=== PATIENT | male | born 1985 | race Caucasian/White ===

== ENCOUNTER 2017-08-20 11:43 | Emergency (ER) | payer OTHER ==
[2017-08-20] MEDS: IBUPROFEN 800 MG TAB PO (12:21)
[2017-08-20] MEDS: CYCLOBENZAPRINE 10 MG TAB PO (12:22)
== END 2017-08-20 13:16 | disposition home or self-care (01) ==
LOC: M ED 11:43
DX: M25.512 Pain in left shoulder (principal); M54.2 Cervicalgia
CPT/HCPCS: 72052

== ENCOUNTER → 2020-06-06 | Outpatient (CLI) | payer OTHER ==
[~2020-06-06] MED LIST: CYCL-707 PO; IBUP80TA PO
--- NOTE | 2020-06-09 14:41 | SLEEPCENT ---
NOCTURNAL POLYSOMNOGRAPHY DATE: 06/06/2020 ORDERED BY: Dr. Burgos, [facility]. Nocturnal polysomnography was performed for evaluation of sleep physiology. 8 hours and 39 minutes of data were reviewed. There were 364 minutes of sleep identified. Sleep latency was prolonged at 33 minutes. REM latency was mildly prolonged at 127 minutes. Sleep architecture showed some fragmentation. There were three REM cycles noted. Overall sleep efficiency was 71.4%. The electrocardiogram showed a sinus rhythm with an average heart rate of 78 beats per minute; rate range 46 to 98. EEG showed reasonably normal waveforms for wake and sleep. There were 176 respiratory events identified of 10 seconds in duration or greater for an apnea-hypopnea index of 29. The events were primarily obstructive, not exclusive to sleep stage, and more frequent, but not exclusive to the supine posture. Arousals from respiratory events occurred 16.8 times per hour and oxygen desaturations were seen below 90%. There was some minor limb activity. Limb movement arousal index was 4.9. IMPRESSION: Obstructive sleep apnea syndrome (G47.33), apnea-hypopnea index 29. RECOMMENDATION: The patient should be encouraged to return [facility] for [facility]. In the interim, alcohol and sedative avoidance should be practiced and caution exercised during the operation of motor vehicles.
== END ==
LOC: M SLEEP 20:00
PROVIDERS: ATTEND Family Medicine
DX: G47.33 Obstructive sleep apnea (adult) (pediatric) (principal)

== ENCOUNTER → 2020-06-13 | Outpatient (CLI) | payer OTHER ==
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
== END ==
LOC: M PAIN 10:00
PROVIDERS: ATTEND Family Medicine
DX: M54.2 Cervicalgia (principal); E78.5 Hyperlipidemia, unspecified; E66.9 Obesity, unspecified; M54.5 Low back pain; L23.9 Allergic contact dermatitis, unspecified cause; Z87.891 Personal history of nicotine dependence; Z68.39 Body mass index [BMI] 39.0-39.9, adult; Z79.899 Other long term (current) drug therapy

== ENCOUNTER → 2020-07-22 | Outpatient (CLI) | payer OTHER ==
--- NOTE | 2020-07-25 01:07 | ECWPNPC ---
PATIENT NAME: AMADOR CASTILLO : 1985 GENDER: MALE VISIT DATE: 07/22/2020 DISCHARGE DATE: 07/22/20 1504 VISIT LOCKED DATE TIME: PHYSICIAN: BILL GRACE RESOURCE: BILL GRACE REASON FOR APPOINTMENT 1. CERVICALGIA HISTORY OF PRESENT ILLNESS GENERAL: HPI . 35-YEAR-OLD MALE IN FOR CHRONIC PAIN FOLLOW-UP. HE RATES HIS PAIN CURRENTLY AT A 6 OUT OF 10 AND DESCRIBES IT BURNING, AND CONTINUOUS. PATIENT WAS STARTED ON GABAPENTIN AT LAST CLINIC VISIT AND HE ADMITS TODAY THAT THIS HAS BEEN BENEFICIAL BUT ALSO STATES THAT IT SEEMS TO WEAR OFF FAST.. -. FALL RISK SCREENING: SCREENING : NO FALLS REPORTED IN THE LAST YEAR. PAIN SCREENING: PATIENT HAS A COMPLAINT OF ACUTE OR CHRONIC PAIN :YES LOCATION OF PAIN:NECK INTENSITY OF PAIN (SCALE OF 1 TO 10):6 WHAT DOES YOUR PAIN FEEL LIKE:BURNING, CONTINOUS, OTHER STIFFNESS DURATION:CONTINOUS PAIN IS INCREASED BY:ACTIVITIES, OTHERS SITTING AND LAYING DOWN, LIFTING PAIN IS DECREASED BY:USE OF PAIN MEDICATIONS NURSING NOTE: -. PAIN CENTER INTAKE QUESTIONS: DO YOU HAVE A HISTORY OF MRSA? :NO DO YOU TAKE A BLOOD THINNERS? :NO DO YOU HAVE ANY BLEEDING DISORDERS? :NO ANY NEW NUMBNESS OR WEAKNESS IN YOUR LEGS OR ARMS? :NO ANY PACEMAKER,DEFIBRILLATOR, OR DORSAL COLUMN STIMULATOR? :NO DO YOU HAVE ANY RASHES OR OPEN SORES? :NO ARE YOU ALLERGIC TO IV DYE? :NO ARE YOU DIABETIC? :NO ANY NEW PROBLEMS WITH YOUR MEDICATIONS? :NO HAVE YOU RECEIVED A VACCINE IN THE PAST 30 DAYS? :NO DO YOU PLAN TO RECEIVE A VACCINE IN THE NEXT 21 DAYS? :NO DO YOU NEED ANY PRESCRIPTION? :YES GABAPENTIN DO YOU TAKE ANY IMMUNOSUPPRESSIVE MEDICATIONS? :NO DO YOU HAVE ANY KIDNEY OR LIVER DISEASE? :NO IS THERE A CHANCE YOU COULD BE ? :NO ARE YOU BREAST FEEDING? :NO CURRENT MEDICATIONS UNKNOWN GABAPENTIN 100 MG CAPSULE 1 CAPSULE ORALLY THREE TIMES DAILY UNKNOWN GABAPENTIN 300 MG CAPSULE 1 CAPSULE ORALLY THREE TIMES DAILY START DAY 6 UNKNOWN ERGOCALCIFEROL 1.25 MG (82766 UT) CAPSULE 1 CAPSULE ORALLY WEEKLY UNKNOWN MAY USE _ VITAMIN D2, 55643 UNITS ORALLY WEEKLY, NOTES: FOR VITAMIN REPLACEMENT MEDICATION LIST REVIEWED AND RECONCILED WITH THE PATIENT PAST MEDICAL HISTORY HYPERLIPIDEMIA OBESITY ECZEMA, ALLERGIC ELEVATED BLOOD PRESSURE READING WITHOUT DIAGNOSIS OF HIGH BLOOD PRESSURE LOW BACK PAIN NECK PAIN ALLERGIES N.K.D.A. SOCIAL HISTORY GENERAL: TOBACCO USE ARE YOU A:FORMER SMOKER LATEX QUESTIONNAIRE LATEX ALLERGY : HAVE YOU EVER DEVELOPED ANY TYPE OF REACTION AFTER HANDLING LATEX PRODUCTS SUCH RUBBER GLOVES, CONDOMS, DIAPHRAGMS, BALLOONS, SOCKS, OR UNDERWEAR?NO LATEX ALLERGY : HAVE YOU EVER DEVELOPED ANY TYPE OF REACTION DURING OR AFTER DENTAL APPOINTMENT, VAGINAL/RECTAL EXAMINATION, SURGICAL PROCEDURE, OR ANY OTHER EXPOSURE?NO LATEX RISK : HAVE YOU EVER HAD ANY DIFFICULTY BREATHING OR HIVES AFTER EATING OR HANDLING ANY FRUITS, OR VEGETABLES; SUCH KIWI, BANANAS, STONE FRUITS, OR CHESTNUTSNO LATEX RISK : DO YOU HAVE A PREVIOUS PERSONAL HISTORY OF MORE THAN NINE SURGERIES, SPINA BIFIDA, OR REPEATED CATHERIZATIONS? NO LATEX RISK : ARE YOU FREQUENTLY EXPOSED TO LATEX PRODUCTS IN YOUR OCCUPATION?NO DATE ASKED : 07/22/2020 ALCOHOL USE: NO. RECREATIONAL DRUG USE DRUG USE?NO CAFFEINE CAFFEINE USE?YES HOW OFTEN AND HOW MUCH? 5/DAY LANGUAGE LANGUAGES SPOKEN:TANZ[place]IAN EDUCATION LEVEL OF EDUCATION:NOT FINISHED HIGH SCHOOL LEARNING BARRIERS / SPECIAL NEEDS CHANGE FROM LAST VISIT?NO BARRIERS TO LEARNING?NO HEARING IMPAIRED?NO TINNITUS VISION IMPAIRED?NO COGNITIVELY IMPAIRED?NO READINESS TO LEARN?YES LEARNING PREFERENCES?NO LEARNING CAPABILITIES PRESENT?YES EMOTIONAL BARRIERS?NO SPECIAL DEVICES?NO FACILITY MAINTENANCE SUPERVISOR NEEDED?NO REVIEW OF SYSTEMS CONSTITUTIONAL: ANY RECENT FEVER NO . CHILLS NO . WEIGHT CHANGE OF UNKNOWN REASONS NO . GASTROENTEROLOGY: NEW UNEXPLAINABLE CHANGES IN BOWEL CONTROL NO . CONSTIPATION NO . GENITOURINARY: ANY NEW CHANGE IN BLADDER CONTROL? NO . NEUROLOGY: NEW ONSET DIZZINESS OR NEUROLOGICAL CHANGES NOT MENTIONED NO . NEW NUMBNESS OR PAIN PATTERNS NOT MENTIONED AND PERTINENT TO TODAY'S VISIT NO . CARDIOLOGY: NEW CHEST PRESSURE NO . PATIENT DENIES NO . RESPIRATORY: UNEXPLAINABLE COUGH NO . NEW SHORTNESS OF BREATH NO . VITAL SIGNS WT 307.4 LBS, HT 73 IN, BMI 40.55 INDEX, BP 145/90 MM HG, HR 106 /MIN, RR 18 /MIN, TEMP 97.1 F, OXYGEN SAT % 92%, SAFE IN ENV? (Y/N) YES, REVIEWED BY: VINNY LANDAVERDE MA. EXAMINATION GENERAL EXAMINATION: GENERALNO ACUTE DISTRESS, WELL NOURISHED AND HYDRATED. PSYCHAPPROPRIATE MOOD AND AFFECT . LUNGS:CLEAR TO AUSCULTATION BILATERALLY, NO WHEEZES, RHONCHI, RALES. HEART:NO MURMURS, REGULAR RATE AND RHYTHM. ASSESSMENTS CERVICALGIA - M54.2 (PRIMARY) TREATMENT CERVICALGIA STOP GABAPENTIN CAPSULE, 100 MG, 1 CAPSULE, ORALLY, THREE TIMES DAILY INCREASE GABAPENTIN TABLET, 600 MG, 1 CAPSULE, ORALLY, THREE TIMES DAILY, 30 DAY(S), 90, REFILLS 2 NOTES: 35-YEAR-OLD MALE IN FOR CHRONIC PAIN FOLLOW-UP. GIVEN PRESENTING SYMPTOMS RECOMMEND INCREASING GABAPENTIN TO 600 MG 3 TIMES A DAY WITH FOLLOW-UP IN 2 MONTHS. PATIENT HAS EXPRESSED UNDERSTANDING OF AND WAS IN AGREEMENT WITH TREATMENT PLAN. GIVEN TIME TO ASK QUESTIONS AND EXPRESS CONCERNS. DISPOSITION & COMMUNICATION FOLLOW UP 2 MONTHS (REASON: MEDICATION INCREASE ) ELECTRONICALLY SIGNED BY DARYL WEEMS ON 07/24/2020 AT 08:50 AM EDT DISCLAIMER : THIS IS A VISIT SUMMARY EXTRACTED FROM THE [employer] CHART. IT IS NOT A COPY OF THE [employer] PROGRESS NOTE. GLENYS
== END ==
LOC: M PAIN 14:45
PROVIDERS: ATTEND Family Medicine
DX: M54.2 Cervicalgia (principal); G89.29 Other chronic pain; Z87.891 Personal history of nicotine dependence; E66.01 Morbid (severe) obesity due to excess calories; Z68.41 Body mass index [BMI] 40.0-44.9, adult; Z79.899 Other long term (current) drug therapy

== ENCOUNTER → 2020-09-12 | Outpatient (CLI) | payer OTHER ==
--- NOTE | 2020-09-16 16:31 | SLEEPCENT ---
NOCTURNAL POLYSOMNOGRAPHY DATE: 09/12/2020 ORDERED BY: Randy Burgos M.D. Nocturnal polysomnography was performed for the titration of pressure therapy in this patient with obstructive sleep apnea syndrome with apnea-hypopnea index of 29. For testing, the patient was fit with a ResMed F20 full face mask of large size, 4 cm of water pressure were applied to the circuit, and the lights were extinguished. 8 hours and 20 minutes of data were reviewed. There were 453 minutes of sleep identified. Sleep latency was short at 2.5 minutes. REM latency was normal at 91 minutes. Sleep architecture was good with four REM cycles. Overall sleep efficiency was 92.3%. The electrocardiogram showed a sinus rhythm with an average heart rate of 68 beats per minute. EEG showed normal waveforms for wake and sleep stages. Respiratory events were fully palliated with CPAP at a pressure of 15 and remaining measures of sleep physiology were normal. IMPRESSION: Obstructive sleep apnea syndrome (G47.33). RECOMMENDATION: Nightly use of pressure therapy 15 cm of water.
== END ==
LOC: M SLEEP 20:00
PROVIDERS: ATTEND Family Medicine
DX: G47.33 Obstructive sleep apnea (adult) (pediatric) (principal)

== ENCOUNTER → 2020-09-22 | Outpatient (CLI) | payer OTHER | LOC: M PAIN 14:45 | PROVIDERS: ATTEND Family Medicine | DX: M54.2 Cervicalgia (principal); G89.29 Other chronic pain; Z87.891 Personal history of nicotine dependence; E66.01 Morbid (severe) obesity due to excess calories; Z68.41 Body mass index [BMI] 40.0-44.9, adult; Z79.899 Other long term (current) drug therapy ==

== ENCOUNTER → 2020-10-23 | Outpatient (CLI) | payer OTHER | LOC: M PAIN 09:15 | PROVIDERS: ATTEND Anesthesiology | DX: M79.18 Myalgia, other site (principal); M54.2 Cervicalgia; E78.5 Hyperlipidemia, unspecified; E66.9 Obesity, unspecified; L23.9 Allergic contact dermatitis, unspecified cause; R03.0 Elevated blood-pressure reading, without diagnosis of hypertension; M54.5 Low back pain; Z87.891 Personal history of nicotine dependence; Z68.41 Body mass index [BMI] 40.0-44.9, adult ==

== ENCOUNTER → 2021-03-25 | Outpatient (CLI) | payer OTHER | LOC: M PAIN 14:30 | PROVIDERS: ATTEND Anesthesiology | DX: M54.50 Low back pain, unspecified (principal); M79.10 Myalgia, unspecified site; M79.18 Myalgia, other site; E78.5 Hyperlipidemia, unspecified; E66.9 Obesity, unspecified; M54.2 Cervicalgia; R03.0 Elevated blood-pressure reading, without diagnosis of hypertension; L23.9 Allergic contact dermatitis, unspecified cause; Z87.891 Personal history of nicotine dependence; Z68.39 Body mass index [BMI] 39.0-39.9, adult ==

== ENCOUNTER → 2021-06-25 | Outpatient (CLI) | payer OTHER | LOC: M LABSMTC 09:15 | PROVIDERS: ATTEND Anesthesiology | DX: Z11.52 Encounter for screening for COVID-19 (principal) ==

== ENCOUNTER → 2021-06-30 | Outpatient (CLI) | payer OTHER ==
[~2021-06-30] MED LIST changes: +BUPIVACAINE HCL 0.25% 10ML VIAL As Ordered ONE; +BUPIVACAINE HCL 0.25% 30ML VIAL As Ordered ONE; +TRIAMCINOLONE ACETONIDE SUSP 40 MG/ML VIAL (J3301) As Ordered ONE; +diazePAM 5MG TABLET As Ordered ONE; +oxyCODONE 5MG TAB As Ordered ONE
== END ==
LOC: M PAIN 08:30
PROVIDERS: ATTEND Anesthesiology
DX: M79.18 Myalgia, other site (principal); G47.30 Sleep apnea, unspecified; Z87.891 Personal history of nicotine dependence; Z79.899 Other long term (current) drug therapy
CPT/HCPCS: 20552; J3301

== ENCOUNTER 2021-07-09 17:39 | Emergency (ER) | payer OTHER ==
[~2021-07-09] VITALS: Ht 188 cm; Wt 135.6 kg
[~2021-07-09 17:39] MED LIST changes: -BUPIVACAINE HCL 0.25% 10ML VIAL As Ordered ONE; -BUPIVACAINE HCL 0.25% 30ML VIAL As Ordered ONE; -TRIAMCINOLONE ACETONIDE SUSP 40 MG/ML VIAL (J3301) As Ordered ONE; -diazePAM 5MG TABLET As Ordered ONE; -oxyCODONE 5MG TAB As Ordered ONE
[2021-07-09 17:40] VITALS: BP 141/99
[2021-07-09] MEDS ORDERED: GABA600T4 (17:50)
[2021-07-09] MEDS ORDERED: DULO1CAP5 (17:50)
[2021-07-09] MEDS ORDERED: TIZA2TA (17:50)
[2021-07-09] MEDS ORDERED: PHEN1TAB73 (17:50)
[2021-07-09] MEDS ORDERED: CEFD300C41 (17:50)
[2021-07-09] MEDS ORDERED: PYRI0.4T (17:50)
[2021-07-09] MEDS ORDERED: KETOROLAC 60MG 2ML VIAL IM ONE (21:00)
== END 2021-07-09 23:27 | disposition home or self-care (01) ==
LOC: M ED 17:39
DX: S00.93XA Contusion of unspecified part of head, initial encounter (principal); S63.501A Unspecified sprain of right wrist, initial encounter; M25.512 Pain in left shoulder; M54.2 Cervicalgia; V85.0XXA Driver of special construction vehicle injured in traffic accident, initial encounter; Y99.0 Civilian activity done for income or pay; M43.12 Spondylolisthesis, cervical region; M25.78 Osteophyte, vertebrae; Z79.899 Other long term (current) drug therapy
CPT/HCPCS: 70450; 72125; 73030; 73110; 96372; 99283; J1885

== ENCOUNTER → 2021-07-21 | Outpatient (CLI) | payer OTHER ==
[~2021-07-21] MED LIST changes: +CEFD300C41; +DULO1CAP5; +GABA600T4; +PHEN1TAB73; +PYRI0.4T; +TIZA2TA
== END ==
LOC: M PAIN 11:15
PROVIDERS: ATTEND Nurse Practitioner Family
DX: M51.16 Intervertebral disc disorders with radiculopathy, lumbar region (principal); G89.29 Other chronic pain; G47.30 Sleep apnea, unspecified; Z87.891 Personal history of nicotine dependence; Z79.899 Other long term (current) drug therapy

== ENCOUNTER → 2021-11-12 | Outpatient (CLI) | payer OTHER | LOC: M PAIN 11:00 → M TMPAIN 11:00 | PROVIDERS: ATTEND Anesthesiology | DX: M51.16 Intervertebral disc disorders with radiculopathy, lumbar region (principal); G89.29 Other chronic pain; Z87.891 Personal history of nicotine dependence; Z79.899 Other long term (current) drug therapy ==

== ENCOUNTER → 2022-01-14 | Outpatient (CLI) | payer OTHER | LOC: M LABSMTC 10:29 | PROVIDERS: ATTEND Anesthesiology | DX: Z11.52 Encounter for screening for COVID-19 (principal) ==

== ENCOUNTER → 2022-01-19 | Outpatient (CLI) | payer OTHER ==
[~2022-01-19] MED LIST changes: +ISOVUE-M 300 61% 15ML VIAL As Ordered ONE; +LIDOCAINE 1% SDV 30ML VIAL As Ordered ONE; +NORCO, ANEXSIA 5/325MG TABLET (HYDROcodone/ACETAMINOPHEN) As Ordered ONE; +diazePAM 5MG TABLET As Ordered ONE; +methylPREDNISolone SUSP 40MG/ML 1ML VIAL (DEPO MEDROL) As Ordered ONE
== END ==
LOC: M PAIN 07:50
PROVIDERS: ATTEND Anesthesiology
DX: M51.16 Intervertebral disc disorders with radiculopathy, lumbar region (principal); E78.5 Hyperlipidemia, unspecified; E66.9 Obesity, unspecified; L23.9 Allergic contact dermatitis, unspecified cause; R03.0 Elevated blood-pressure reading, without diagnosis of hypertension; M54.2 Cervicalgia; L40.9 Psoriasis, unspecified; Z87.891 Personal history of nicotine dependence; Z79.899 Other long term (current) drug therapy; Z68.37 Body mass index [BMI] 37.0-37.9, adult
CPT/HCPCS: 62323; J1030; Q9967

== ENCOUNTER → 2022-02-03 | Outpatient (CLI) | payer OTHER ==
[~2022-02-03] MED LIST changes: -ISOVUE-M 300 61% 15ML VIAL As Ordered ONE; -LIDOCAINE 1% SDV 30ML VIAL As Ordered ONE; -NORCO, ANEXSIA 5/325MG TABLET (HYDROcodone/ACETAMINOPHEN) As Ordered ONE; -diazePAM 5MG TABLET As Ordered ONE; -methylPREDNISolone SUSP 40MG/ML 1ML VIAL (DEPO MEDROL) As Ordered ONE
== END ==
LOC: M PAIN 11:15
PROVIDERS: ATTEND Anesthesiology
DX: G89.29 Other chronic pain (principal); M51.16 Intervertebral disc disorders with radiculopathy, lumbar region; Z87.891 Personal history of nicotine dependence

== ENCOUNTER → 2022-03-11 | Outpatient (CLI) | payer OTHER | LOC: M PAIN 09:30 → M TMPAIN 09:30 | PROVIDERS: ATTEND Anesthesiology | DX: M51.17 Intervertebral disc disorders with radiculopathy, lumbosacral region (principal); G89.29 Other chronic pain; Z87.891 Personal history of nicotine dependence; Z79.82 Long term (current) use of aspirin; Z79.899 Other long term (current) drug therapy ==

== ENCOUNTER → 2022-05-05 | Outpatient (CLI) | payer OTHER | LOC: M PAIN 09:00 | PROVIDERS: ATTEND Anesthesiology | DX: M51.16 Intervertebral disc disorders with radiculopathy, lumbar region (principal); E78.5 Hyperlipidemia, unspecified; E66.9 Obesity, unspecified; L23.9 Allergic contact dermatitis, unspecified cause; R03.0 Elevated blood-pressure reading, without diagnosis of hypertension; M54.2 Cervicalgia; L40.9 Psoriasis, unspecified; Z87.891 Personal history of nicotine dependence; Z79.82 Long term (current) use of aspirin; Z79.899 Other long term (current) drug therapy ==